=== PATIENT | male | born 1950 | race Caucasian/White ===

== ENCOUNTER 2024-07-04 15:04 | Emergency (ER) | payer MEDICARE ==
[~2024-07-04] VITALS: Ht 185.4 cm; Wt 145.4 kg
[2024-07-04 15:05] VITALS: BP 140/75; PULSE 82; RESP 16; TEMP 98.3; O2SAT 96
[2024-07-04] MEDS ORDERED: HYDR-3965 PO (17:26)
[2024-07-04] MEDS ORDERED: LIDO700A32 TD (17:26)
== END 2024-07-04 17:31 | disposition home or self-care (01) ==
LOC: ER 15:05
DX: M25.512 Pain in left shoulder (principal); M77.8 Other enthesopathies, not elsewhere classified; Z88.2 Allergy status to sulfonamides; Z79.899 Other long term (current) drug therapy
CPT/HCPCS: 73030; 99283; A4565

== ENCOUNTER 2025-01-21 18:54 | Emergency (ER) | payer MEDICARE ==
[~2025-01-21] VITALS: Ht 185.4 cm; Wt 153.0 kg
[~2025-01-21 18:54] MED LIST: LIDO-52 TD
[2025-01-21 19:07] VITALS: BP 138/101; PULSE 82; O2SAT 96
--- NOTE | 2025-01-21 19:18 | Physician Documentation ---
History of Present Illness ~ Chief Complaint: Cold, cough & congestion Stated Complaint: COUGH,CONGESTION,SOB Time Seen by MD: 19:18 Primary Medical Doctor: none Source: patient Mode of Arrival: POV Exam Limitations: no limitations HPI 74-year-old male with complaints of cough fluorescein over the past few days. Patient states he had an upper respiratory infection and symptoms over the past week but over the past three days his cough has gotten much worse coughing chest discomfort while coughing and shortness of breath while coughing. Patient states that he does not experience shortness of breath or chest pain while at rest. Patient denies any significant cardiac or respiratory history. Patient is a any fever Medication Reconciliation Allergies: Coded Allergies: Sulfa (Sulfonamide Antibiotics) (Unverified Allergy, Severe, difficulty breathing, 01/21/25) Uncoded Allergies: SULFATES (Allergy, Unknown, 01/21/25) Scheduled Lidocaine (Lidoderm), 1 PATCH TD DAILY Past Medical History Past Medical History: No Pertinent History Review of Systems All Other Systems at this time: Reviewed and Negative Respiratory: Reports: see HPI Cardiovascular: Reports: other Physical Exam Vital Signs: RN Vital Signs have been reviewed: Yes, Temperature: 96.9, Source: Temporal, Heart Rate: 82, Respiratory Rate: 20, BP: 138/101, Pulse Oximetry: 96, Weight: 153.000 Oxygen Flow Rate: 0 General Appearance: alert, WD/WN, no apparent distress Eyes: normal inspection, PERRL Nose: normal inspection; No: discharge Oropharynx: normal inspection, moist mucous membranes Neck: non-tender, full range of motion, supple, normal inspection Respiratory: lungs clear, normal breath sounds, no respiratory distress Respiratory Productive cough with bronchospasm during coughing fits. Wet sounding cough. Good movement throughout Cardiovascular: regular rate, rhythm Gastrointestinal: non-tender, bowels sounds present Progress Results/Orders Results/Orders Vital Signs 01/21/25 01/21/25 19:07 19:57 Temp 96.9 Pulse 82 Resp 20 18 B/P (MAP) 138/101 Pulse Ox 96 O2 Flow Rate 0 Laboratory Tests Test 01/21/25 19:25 White Blood Count 6.8 Red Blood Count 4.53 L Hemoglobin 13.8 L Hematocrit 40.8 L Mean Corpuscular Volume 90.1 Mean Corpuscular Hemoglobin 30.5 Mean Corpuscular Hemoglobin Concent 33.9 Red Cell Distribution Width 14.0 Platelet Count 247 Mean Platelet Volume 8.1 Neutrophils (%) (Auto) 62.7 Lymphocytes (%) (Auto) 24.9 Monocytes (%) (Auto) 8.5 Eosinophils (%) (Auto) 3.3 Basophils (%) (Auto) 0.6 Neutrophils # (Auto) 4.3 Lymphocytes # (Auto) 1.7 Monocytes # (Auto) 0.6 Eosinophils # (Auto) 0.2 Basophils # (Auto) 0.0 CBC Comment Sodium Level 138 Potassium Level 4.1 Chloride Level 101 Carbon Dioxide Level 28.3 Anion Gap 9 Blood Urea Nitrogen 10 Creatinine 0.92 Estimated GFR/1.73 m2 80 BUN/Creatinine Ratio 10.9 Glucose Level 94 Calcium Level 8.9 Pro-B-Type Natriuretic Peptide 45 Albumin 3.4 Chemistry Comments Medical Decision Making Findings Labs are unremarkable for any significant findings including any infective processes no elevated white count. X-ray is also without infiltrates. EKG unremarkable as well. Acute upper respiratory infection, pneumonia, bronchitis as well as bacterial versus viral etiology has differentials. Patient desires to go home. Patient will follow up with primary care antibiotic and medication for cough prescribed. Patient is aware of warning signs and symptoms Differential Dx:Considerations: Include: Influenza, Pharyngitis-Viral, Pneumonia, Sinusitis, URI, Other Departure Time of Disposition: 20:43 Disposition: HOME / SELF CARE / HOMELESS Impression: Primary Impression: Acute bronchitis Condition: Stable Discharge Instructions: Upper Respiratory Infection, Adult, Acute Bronchitis, Adult Additional Instructions: Follow up with your primary care provider next week. Take antibiotics as prescribed. Use cough medication as needed. If the fetus return to the ER for any new or worsening symptoms Referrals: NO PRIMARY CARE PROVIDER (PCP) Prescriptions Benzonatate* (Benzonatate*) 100 Mg Capsule 1-2 CAP PO Q4H for cough for 5 Days, #60 CAP Prov: DORIS CUEVAS LICENSED PSYCHOLOGIST DIRECTOR 01/21/25 Amox Tr/Potassium Clavulanate (Augmentin 875-125 Tablet) 1 Each Tablet 1 TAB PO Q12H for 10 Days, #20 TAB Prov: DORIS CUEVAS LICENSED PSYCHOLOGIST DIRECTOR 01/21/25 albuterol inhaler (Pro-Air Inhaler) 8.5 Gm Inhaler 2 PUFFS INH Q4HPRN PRN for wheezing for 30 Days, #18 GM Prov: DORIS CUEVAS NP 01/21/25 Education Educated: Patient Educated regarding: diagnosis, treatment, need for follow up Signature Scribe Signature: No scribe Attestation: The note accurately reflects work and decisions made by me.Doris Cuevas - MICHAEL 01/21/25 19:17 DORIS CUEVAS NP Jan 21, 2025 19:18
[2025-01-21 19:47] LABS: BASOPHILS % (AUTO) 0.6 % (0-1); EOSINOPHILS # (AUTO) 0.2 X10'3 (0-0.9); EOSINOPHILS % (AUTO) 3.3 % (0-6); HEMATOCRIT 40.8 % (42.0-52.0); HEMOGLOBIN 13.8 g/dl (14.0-17.9); LYMPHOCYTES # (AUTO) 1.7 X10'3 (1.1-4.8); LYMPHOCYTES % (AUTO) 24.9 % (21-51); MEAN CORPUSCULAR HEMOGLOBIN 30.5 PG (27.0-31.0); MEAN CORPUSCULAR HGB CONC 33.9 g/dL (33.0-36.5); MEAN CORPUSCULAR VOLUME 90.1 FL (78-98); MEAN PLATELET VOLUME 8.1 FL (7.4-10.4); MONOCYTES # (AUTO) 0.6 X10'3 (0-0.9); MONOCYTES % (AUTO) 8.5 % (2-12); NEUTROPHILS # (AUTO) 4.3 X10'3 (1.8-7.7); NEUTROPHILS % (AUTO) 62.7 % (42-75); PLATELET COUNT 247 X10'3 (140-440); RED BLOOD COUNT 4.53 X10'6 (4.70-6.10); WHITE BLOOD COUNT 6.8 X10'3 (4.5-11.0)
[2025-01-21 19:57] VITALS: RESP 18
[2025-01-21 20:08] LABS: ALBUMIN 3.4 G/DL (3.4-5.0); ANION GAP 9 (8-16); BLOOD UREA NITROGEN 10 MG/DL (7-18); BUN/CREATININE RATIO 10.9 (10.0-20.0); CALCIUM 8.9 MG/DL (8.5-10.1); CHLORIDE 101 MMOL/L (99-107); CREATININE 0.92 MG/DL (0.60-1.10); GLUCOSE 94 MG/DL (70-104); POTASSIUM 4.1 MMOL/L (3.5-5.1); PRO BRAIN NATRIURETIC PEPTIDE 45 PG/ML (0-450); SODIUM 138 MMOL/L (135-145); TOTAL CARBON DIOXIDE 28.3 MMOL/L (24-32); eCRCL 78 ML/MIN; eGFR 80 ML/MIN
--- NOTE | 2025-01-21 20:10 | RADIOLOGY REPORT ---
EXAM: DI CHEST,TWO VIEWS TECHNIQUE: Two radiographic views of the chest CLINICAL HISTORY: SOB COMPARISON: None Findings/Impression: Frontal and lateral chest radiographs demonstrate no acute osseous or superficial soft tissue abnorma lities. The trachea is midline. The cardiac silhouette and mediastinum are within normal limits. No pneumothorax, pleural effusions, or consolidations.
[2025-01-21] MEDS ORDERED: ALBU8HFA INH (20:47)
[2025-01-21] MEDS ORDERED: BENZ-38 PO (20:47)
[2025-01-21] MEDS ORDERED: AMOX-117 PO (20:47)
[2025-01-21] MEDS: benzonatate 100mg capsule PO ONE (20:54)
[2025-01-21] MEDS: amox tr/potassium clavulanate 875/125mg TAB PO ONE (20:55)
[2025-01-21] MEDS: guaiFENesin ER 600mg tablet PO STA (20:55)
[2025-01-21 21:05] VITALS: TEMP 96.9
--- NOTE | 2025-01-22 06:20 | ELECTROCARDIOGRAPH REPORT ---
[facility] Test Date: 2025-01-21 Test Time: 19:21:23 Pat Name: ATIYA RUBY Department: EMERGENCY ROOM Room: Gender: M Senior Quantity Surveyor: : 1950 Requested By: GAIL AGUILAR Order Number: [id number] Reading MD: Dr. Dann Whitley Measurements Intervals [place] Rate: 69 P: -11 RI: 182 QRS: 37 QRSD: 132 T: 19 QT: 397 QTc: 426 Interpretive Statements Sinus rhythm IVCD, consider atypical RBBB Electronically Signed On 01-22-2025 18:22:[address] Dann Whitley Please click the below link to view image of tracing.
== END 2025-01-21 21:06 | disposition home or self-care (01) ==
LOC: ER 18:54
DX: J20.9 Acute bronchitis, unspecified (principal); Z88.2 Allergy status to sulfonamides; Z79.899 Other long term (current) drug therapy
CPT/HCPCS: 36415; 71046; 80048; 83880; 85025; 93005; 99285

== ENCOUNTER 2025-01-27 19:01 | Emergency (ER) | payer MEDICARE ==
[~2025-01-27] VITALS: Ht 185.4 cm; Wt 124.1 kg
[~2025-01-27 19:01] MED LIST changes: +ALBU8HFA INH; +AMOX-117 PO; +BENZ-38 PO
[2025-01-27 19:12] VITALS: BP 140/83; PULSE 99; RESP 15; TEMP 96.8; O2SAT 99
[2025-01-27] MEDS ORDERED: ibuprofen tablet 400 MG TABLET PO ONE (21:15)
--- NOTE | 2025-01-27 21:17 | Physician Documentation ---
History of Present Illness ~ Chief Complaint: Cold, cough & congestion Stated Complaint: COUGH Time Seen by MD: 20:56 Primary Medical Doctor: none HPI Patient presents to the emergency room for evaluation of worsening cough. He was seen here one-week ago and prescribed antibiotics however that has symptoms continued to worsen. No fevers. He states he is also suffering from a headache from the coughing. Medication Reconciliation Allergies: Coded Allergies: Sulfa (Sulfonamide Antibiotics) (Unverified Allergy, Severe, difficulty breathing, 01/27/25) Uncoded Allergies: SULFATES (Allergy, Unknown, 01/21/25) Scheduled Amox Tr/Potassium Clavulanate (Augmentin 875-125 Tablet), 1 TAB PO Q12H Lidocaine (Lidoderm), 1 PATCH TD DAILY Scheduled PRN albuterol inhaler (Pro-Air Inhaler), 2 PUFFS INH Q4HPRN PRN for wheezing Discontinued Medications Benzonatate* (Benzonatate*), 1-2 CAP PO Q4H Discontinued Reason: Auto Discontinued Past Medical History Past Medical History: No Pertinent History Review of Systems ROS All review of systems negative except as per HPI Physical Exam Vital Signs: Temperature: 96.8, Source: Temporal, Heart Rate: 99, Respiratory Rate: 15, BP: 140/83, Pulse Oximetry: 99, Weight: 124.100 Physical Exam General: Patient is awake, alert, oriented x4 in no acute distress Head: Normocephalic and atraumatic. Eyes: Conjunctival normal. EOMI. PERRL. ENT: Mucous membranes moist. Neck: Supple, trachea is midline. Chest: Coarse breath sounds bilaterally without wheezing. There is no accessory muscle use or retractions. Cardiac: RRR without murmurs, gallops, or rubs. Progress Results/Orders Results/Orders Orders - ANDREI KOTHARI MD Urinalysis, Cult If Indicated (01/27/25 21:12) Culture Blood (01/27/25 21:12) Chest,Single View (01/27/25 21:21) Completed Orders - ANDREI KOTHARI MD Cbc/Diff (01/27/25 21:12) MG (01/27/25 21:12) Chest,Single View (01/27/25 21:21) Procalcitonin (01/27/25 21:12) BMP (01/27/25 21:12) Lacticsepsis (01/27/25 21:12) Benzonatate Capsule (Tessalon Perles Cap (01/27/25 21:15) Acetaminophen 325mg Tablet (Tylenol Tabl (01/27/25 21:15) Ibuprofen Tablet (Motrin Tablet) (01/27/25 21:20) PBNP (01/27/25 21:17) Medications Received in ER Medications (Trade) Dose Ordered Sig/Ishmael Route PRN Reason Start Time Stop Time Status Last Admin Dose Admin (Tessalon Perles capsule) 200 mg ONCE ONCE PO 01/27/25 21:15 01/27/25 21:16 DC 01/27/25 22:08 200 MG (Tylenol tablet) 650 mg ONCE ONCE PO 01/27/25 21:15 01/27/25 21:16 DC 01/27/25 22:05 650 MG (Motrin tablet) 600 mg ONCE ONCE PO 01/27/25 21:20 01/27/25 21:21 DC 01/27/25 22:07 600 MG Vital Signs 01/27/25 19:12 Temp 96.8 Pulse 99 Resp 15 B/P (MAP) 140/83 Pulse Ox 99 Laboratory Tests Test 01/27/25 21:35 White Blood Count 7.6 Red Blood Count 4.62 L Hemoglobin 14.0 Hematocrit 41.7 L Mean Corpuscular Volume 90.2 Mean Corpuscular Hemoglobin 30.2 Mean Corpuscular Hemoglobin Concent 33.5 Red Cell Distribution Width 14.3 Platelet Count 271 Mean Platelet Volume 8.1 Neutrophils (%) (Auto) 63.3 Lymphocytes (%) (Auto) 21.3 Monocytes (%) (Auto) 10.9 Eosinophils (%) (Auto) 3.6 Basophils (%) (Auto) 0.9 Neutrophils # (Auto) 4.8 Lymphocytes # (Auto) 1.6 Monocytes # (Auto) 0.8 Eosinophils # (Auto) 0.3 Basophils # (Auto) 0.1 CBC Comment Sodium Level 136 Potassium Level 4.1 Chloride Level 100 Carbon Dioxide Level 28.5 Anion Gap 8 Blood Urea Nitrogen 10 Creatinine 0.82 Estimated GFR/1.73 m2 > 90 BUN/Creatinine Ratio 12.2 Glucose Level 95 Lactic Acid Level 2.0 Calcium Level 8.7 Magnesium Level 2.0 Pro-B-Type Natriuretic Peptide 31 Albumin 3.4 Procalcitonin < 0.05 Chemistry Comments Medical Decision Making Findings Patient presents to the emergency room for evaluation of cough as per HPI. Differentials include but are not limited to pneumonia, viral syndrome, bronchitis, fluid overload therefore emergent labs and imaging indicated. Chest x-ray and labs are reassuring. Patient was responding to Tessalon Perles. I will give him a hard copy of Tessalon Perles along with changing his albuterol to sulfate free. I have also given him a list of other homeopathic remedies such as honey, night air, cool mist humidifier etc. to treat his cough. ER precautions discussed. At this time he is to continue his antibiotic and I will not prescribe additional antibiotics at this time. ER precautions discussed Departure Disposition: HOME / SELF CARE / HOMELESS Impression: Primary Impression: Cough Condition: Stable Discharge Instructions: Cough, Adult Referrals: NO PRIMARY CARE PROVIDER (PCP) Prescriptions Levalbuterol Tartrate (Xopenex Hfa) 45 Mcg/Actuation Hfa.aer.ad 2 PUFFS INH Q4HPRN PRN for wheezing, #15 GM 0 Refills Prov: ANDREI KOTHARI MD 01/27/25 Benzonatate* (Benzonatate*) 100 Mg Capsule 1-2 CAP PO Q4H for cough for 5 Days, #60 CAP Prov: ANDREI KOTHARI MD 01/27/25 Education Educated: Patient Educated regarding: diagnosis, treatment, need for follow up Signature Scribe Signature: no scribe Attestation: The note accurately reflects work and decisions made by me.Andrei Kothari MD 01/27/25 22:53 ANDREI KOTHARI MD Jan 27, 2025 21:17
--- NOTE | 2025-01-27 21:34 | RADIOLOGY REPORT ---
EXAM: DI CHEST,SINGLE VIEW TECHNIQUE: Single frontal chest radiograph CLINICAL HISTORY: SEPSIS COMPARISON: None Findings/Impression: Frontal chest radiograph demonstrates no acute osseous or superficial soft tissue abnormalities. The trachea is midline. The cardiac silhouette and mediastinum are within normal limits. No pneumothorax, pleural effusions, or consolidations.
[2025-01-27 21:47] LABS: MEAN PLATELET VOLUME 8.1 FL (7.4-10.4); RED CELL DISTRIBUTION WIDTH 14.3 % (11.5-14.5)
[2025-01-27 22:05] LABS: CREATININE 0.82 MG/DL (0.60-1.10); PRO BRAIN NATRIURETIC PEPTIDE 31 PG/ML (0-450); TOTAL CARBON DIOXIDE 28.5 MMOL/L (24-32); eCRCL 88 ML/MIN; eGFR > 90 ML/MIN
[2025-01-27] MEDS ORDERED: LEVA15HF9 INH (22:53)
[2025-01-27] MEDS ORDERED: BENZ-38 PO (22:53)
== END 2025-01-27 23:17 | disposition home or self-care (01) ==
LOC: ER 19:02
DX: R05.9 Cough, unspecified (principal); R51.9 Headache, unspecified; R06.02 Shortness of breath; Z79.899 Other long term (current) drug therapy; Z88.2 Allergy status to sulfonamides
CPT/HCPCS: 36415; 71045; 80048; 83605; 83735; 83880; 84145; 85025; 87040; 99284

== ENCOUNTER 2025-03-31 15:21 | Emergency (ER) | payer MEDICARE ==
[~2025-03-31] VITALS: Ht 185.4 cm; Wt 153.0 kg
[~2025-03-31 15:21] MED LIST changes: -ALBU8HFA INH; -AMOX-117 PO; -BENZ-38 PO; +LEVA15HF9 INH
[2025-03-31 15:59] VITALS: BP 133/88; PULSE 80; O2SAT 96
--- NOTE | 2025-03-31 16:28 | Physician Documentation ---
History of Present Illness ~ Chief Complaint: Back Pain Stated Complaint: BACK PAIN Time Seen by MD: 16:19 Primary Medical Doctor: none HPI This 74-year-old male presents to the ED with a complaint of acute onset lumbar pain for the last 4-5 days. He denies any urinary or stool incontinence denies any fevers however he does state that he has ongoing numbness. He adds though that he is a diabetic and has chronic neuropathy and takes gabapentin for 300 mg 3 times daily He denies any injury. He states that he has relatively sedentary secondary to needing both of his knees to be replaced.. He said yesterday he was only able to get up two or 3 times because of the lumbar pain that he has been experiencing. Medication Reconciliation Allergies: Coded Allergies: Sulfa (Sulfonamide Antibiotics) (Unverified Allergy, Severe, difficulty breathing, 03/31/25) Uncoded Allergies: SULFATES (Allergy, Unknown, 01/21/25) Scheduled Cyclobenzaprine HCl (Cyclobenzaprine HCl), 1 TAB PO Q8H Lidocaine (Lidoderm), 1 PATCH TD DAILY Scheduled PRN Levalbuterol Tartrate (Xopenex Hfa), 2 PUFFS INH Q4HPRN PRN for wheezing Past Medical History Past Medical History: No Pertinent History Review of Systems All Other Systems at this time: Reviewed and Negative ROS As stated above in the HPI, otherwise all systems are reviewed and negative. Physical Exam Physical Exam Vital Signs: Temperature: 98.1, Source: Oral, Heart Rate: 80, Respiratory Rate: 18, BP: 133/88, Pulse Oximetry: 96, Weight: 153.000 Physical Exam General: Alert, no apparent distress. back: Tender to lumbar region via palpation bilateral Gastrointestinal: Soft, nontender, nondistended. Bowels sounds present. Neurologic: Oriented x4. Psychiatric: Normal mood and affect. Skin: Normal color, warm and dry. No edema, no ecchymosis. Progress Results/Orders Results/Orders Orders - CHASE HURT PAINTER SUPERVISOR Lumbar Spine Limited (03/31/25 16:29) Completed Orders - CHASE HURT PAINTER SUPERVISOR Lumbar Spine Limited (03/31/25 16:29) Cyclobenzaprine Tablet (Flexeril Tablet) (03/31/25 16:30) Hydrocodone/Apap 10/325 (Warren 10/325mg (03/31/25 16:30) Medications Received in ER Medications (Trade) Dose Ordered Sig/Ishmael Route PRN Reason Start Time Stop Time Status Last Admin Dose Admin (Flexeril tablet) 10 mg ONCE ONCE PO 03/31/25 16:30 03/31/25 16:31 DC 03/31/25 16:48 10 MG (Warren 10/325mg tab) 1 tab ONCE ONCE PO 03/31/25 16:30 03/31/25 16:31 DC 03/31/25 16:47 1 TAB Vital Signs 03/31/25 03/31/25 15:59 16:47 Temp 98.1 Pulse 80 Resp 18 16 B/P (MAP) 133/88 Pulse Ox 96 Medical Decision Making Findings This patient presents with a clinical indications for a lumbar strain. He does have evidence of a post surgical intervention in his lumbosacral region. As he continued to maintain he has had no acute injuries he also reported improved symptoms after receiving cyclobenzaprine and Toradol. Offered patient hospitalization in however patient declined Differential Dx:Considerations: Include: AAA, Aortic dissection, Appendicitis, Bowel obstruction, Cholelithiasis, Cholangitis, DJD, Fracture, Hepatitis, HNP, Musculoskeletal pain, Pancreatitis, Pyelonephritis, Renal infarction, Strain, U rinary obstruction, Urolithiasis, Urinary tract infection, Other Departure Disposition: 01 HOME / SELF CARE / HOMELESS Impression: Primary Impression: Strain of lumbar region Additional Impressions: Low back pain Chronic back pain Condition: Stable Discharge Instructions: Lumbosacral Strain Referrals: NO PRIMARY CARE PROVIDER (PCP) Prescriptions Cyclobenzaprine HCl (Cyclobenzaprine HCl) 10 Mg Tablet 1 TAB PO Q8H for muscle spasms for 10 Days, #30 TAB 0 Refills Prov: CHASE HURT NP 03/31/25 Education Educated: Patient Educated regarding: diagnosis Signature Scribe Signature: g Attestation: Scribed for Chase Hurt [employer] Operations Manager by Chase Gentile NP . 03/31/25 17:24 CHASE HURT NP Mar 31, 2025 16:28
[2025-03-31 16:47] VITALS: RESP 16
[2025-03-31] MEDS: HYDROcodone/acetaminophen 10/325mg tab PO ONE (16:47)
[2025-03-31] MEDS ORDERED: CYCL-357 PO (17:23)
--- NOTE | 2025-03-31 17:25 | RADIOLOGY REPORT ---
INDICATION: pain TECHNIQUE: 4 views of the lumbar spine were obtained. COMPARISON: None FINDINGS: There are no acute fractures or subluxations. Diffuse osteopenia. Advanced multilevel degenerative changes of the spine. Posterior lumbosacral spinal fixation hardware is present. Vascular calcifications of the aorta. IMPRESSION: No acute fracture or subluxation.
[2025-03-31 17:53] VITALS: TEMP 98.1
== END 2025-03-31 17:55 | disposition home or self-care (01) ==
LOC: ER 15:21
DX: S39.012A Strain of muscle, fascia and tendon of lower back, initial encounter (principal); E11.40 Type 2 diabetes mellitus with diabetic neuropathy, unspecified; Z88.2 Allergy status to sulfonamides; X58.XXXA Exposure to other specified factors, initial encounter; Y93.89 Activity, other specified; Y92.89 Other specified places as the place of occurrence of the external cause; Y99.8 Other external cause status
CPT/HCPCS: 72100; 99283